=== PATIENT | female | born 1945 | race Caucasian/White ===

== ENCOUNTER 2016-05-17 05:11 | Emergency (ER) | payer BC, MEDICARE ==
[~2016-05-17] VITALS: Ht 167.6 cm; Wt 75.7 kg
[~2016-05-17 05:11] MED LIST: ALPR0.25 PO; ASPI81TA2 PO; ATOR10TA GT; LOSA1TAB3 PO; MOME17SP; PANT40TA4 PO
--- NOTE | 2016-05-17 05:15 | NUR ---
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 PT STATED THAT THE CHEST PAIN MUST HAVE WOKEN HER UP. PT STATED THAT THE CP SUBSIDED SHORTLY AFTER SHE WOKE UP. PT THEN TOOK 81MG ASPIRIN AND DECIDED TO COME TO THE ER TO BE CHECKED.
[2016-05-17] MEDS ORDERED: ASPIRIN 81 MG TAB.CHEW ONE (05:26)
--- NOTE | 2016-05-17 05:29 | NUR ---
EKG DONE AT THE BEDSIDE.
[2016-05-17] MEDS ORDERED: ASPIRIN 81 MG TAB.CHEW PO ONE ×2 (05:30)
--- NOTE | 2016-05-17 05:30 | NUR ---
PT REQUESTED FOOD PRIOR TO TAKING ASPIRIN. PT REC'D JELLO AND CRACKERS.
[2016-05-17 05:37] LABS: BASOPHILS % (AUTO) 0.5 % (0.0-2.0); EOSINOPHILS # (AUTO) 0.2 /CMM (0.0-0.7); EOSINOPHILS % (AUTO) 2.5 % (0.0-6.0); HEMATOCRIT 38 % (33-45); HEMOGLOBIN 12.8 g/dL (11.5-14.8); LYMPHOCYTES # (AUTO) 1.7 /CMM (0.8-4.8); LYMPHOCYTES % (AUTO) 21.1 % (20.0-44.0); MEAN CORPUSCULAR HEMOGLOBIN 29 PG (26.0-33.0); MEAN CORPUSCULAR HGB CONC 34 g/dl (31.0-36.0); MEAN CORPUSCULAR VOLUME 86 fL (82-100); MONOCYTES # (AUTO) 0.7 /CMM (0.1-1.30); MONOCYTES % (AUTO) 8.2 % (2.0-12.0); NEUTROPHILS # (AUTO) 5.6 /CMM (1.8-8.9); NEUTROPHILS % (AUTO) 67.7 % (43.0-81.0); PLATELET COUNT (AUTO) 236 /CMM (150-450); RDW COEFFICIENT OF VARIATION 13.6 (11.5-15.0); RED BLOOD CELL COUNT(AUTO) 4.37 MIL/uL (4.0-5.2); WHITE BLOOD COUNT (AUTO) 8.2 K/uL (4.3-11.0)
[2016-05-17 05:50] LABS: CALCIUM, SERUM 9.1 mg/dL (8.5-10.1); CARBON DIOXIDE 26 mmol/L (21-32); CHLORIDE 104 mmol/L (98-107); CREATININE 0.9 mg/dL (0.6-1.3); GLUCOSE 106 mg/dL (74-106); POTASSIUM 3.9 mmol/L (3.5-5.1); SODIUM SERUM 139 mmol/L (136-145); UREA NITROGEN, BLOOD 20 mg/dL (7-18)
[2016-05-17 05:57] LABS: TROPONIN I < 0.017 ng/mL (0.00-0.056)
--- NOTE | 2016-05-17 05:59 | NUR ---
CXR IN PROGRESS AT THE BEDSIDE.
[2016-05-17 06:00] LABS: INR 0.96 (0.87-1.13); PROTHROMBIN TIME 10.2 SECS (9.5-12.7)
[2016-05-17 06:02] LABS: B-TYPE NATRIURETIC PEPTIDE 37 PG/ML (0-125)
--- NOTE | 2016-05-17 06:06 | NUR ---
DR. COLIN IS AT THE BEDSIDE.
--- NOTE | 2016-05-17 06:08 | NUR ---
PT IS OK WITH STAYING FOR A REPEAT TROPONIN AT 0825.
--- NOTE | 2016-05-17 06:27 | NUR ---
PT APPEARS TO BE RESTING COMFORTABLY WITH NO S/S OF PAIN OR DISTRESS.
--- NOTE | 2016-05-17 07:13 | NUR ---
REPORT GIVEN TO GERALDINE MANCINI FOR NERY.
--- NOTE | 2016-05-17 08:00 | NUR ---
Patient is resting comfortably in bed with eyes closed. Easily aroused. VSS
[2016-05-17 09:24] VITALS: BP 135/71
--- NOTE | 2016-05-17 09:24 | NUR ---
IV removed. Catheter intact and site benign. Pressure and 4x4 applied to site. No bleeding noted.Patient discharged to home in stable condition. Written and verbal after care instructions given. Patient verbalizes understanding of instruction. Pt ambulatory with a steady gait.
== END 2016-05-17 09:25 | disposition home or self-care (01) ==
LOC: ER 05:13
DX: R07.2 Precordial pain (principal); I10 Essential (primary) hypertension; K21.9 Gastro-esophageal reflux disease without esophagitis; R79.1 Abnormal coagulation profile; Z79.82 Long term (current) use of aspirin
CPT/HCPCS: 36415; 71010; 80048; 83880; 84484 ×2; 85025; 85730; 93005; 99285; A4606; Z7610

== ENCOUNTER 2016-12-31 21:30 | Emergency (ER) | payer MEDICARE ==
[~2016-12-31] VITALS: Ht 162.6 cm; Wt 77.1 kg
--- NOTE | 2016-12-31 21:40 | NUR ---
TO BED 8 A 71 YO FEMALE PATIENT BIBSELF C/O RIGHT FOOT PAIN S/P GLF WALKING DOG X 6:30PM, - KO. NOTED ALSO WITH RIGHT FOREARM ABRASIONS. VSS. NAD NOTED. GOWNED. COMFORT MEASURES RENDERED. AWAITING FOR ER MD QUINN.
--- NOTE | 2016-12-31 23:40 | NUR ---
splint applied on the right foot/lower extremity, no adverse condition noted.
--- NOTE | 2016-12-31 23:54 | NUR ---
Patient discharged to home in stable condition. Written and verbal after care instructions given. Patient verbalizes understanding of instruction. Patient able to ambulate with cane, no further complaints.
[2017-01-01 00:07] VITALS: BP 134/74
== END 2017-01-01 00:40 | disposition home or self-care (01) ==
LOC: ER 21:31
DX: S92.351A Displaced fracture of fifth metatarsal bone, right foot, initial encounter for closed fracture (principal); I10 Essential (primary) hypertension; K21.9 Gastro-esophageal reflux disease without esophagitis; J45.909 Unspecified asthma, uncomplicated; E89.0 Postprocedural hypothyroidism; Z79.82 Long term (current) use of aspirin; X50.1XXA Overexertion from prolonged static or awkward postures, initial encounter; Y93.01 Activity, walking, marching and hiking; Y92.89 Other specified places as the place of occurrence of the external cause; Y99.8 Other external cause status
CPT/HCPCS: 29515; 73610; 73630; 99284; A4606; Z7610